=== PATIENT | male | born 1970 | race Caucasian/White ===

== ENCOUNTER → 2025-08-29 | Outpatient (CLI) | payer MEDICAID, SELFPAY ==
--- NOTE | 2025-08-29 15:46 | MRI_ITS ---
PROCEDURE: SPINE CERVICAL (ROUTINE) 08/29/2025 REASON FOR EXAM: PAIN, RIGHT SHOULDER RADICULOPATHY X10 YEARS TECHNIQUE: Procedure Code: MRISPC Modality: MR Procedure: SPINE CERVICAL (ROUTINE) Multiplanar and multisequence images were obtained without IV contrast administration. FINDINGS: Normal cervical alignment. Normal vertebral body height. No Chiari deformity. No subluxation or marrow infiltration. Cervical spinal cord normal in both caliber and signal. C2-3 is unremarkable. Minor annular bulging at C3-4. C4-5 and C5-6 are unremarkable. Minor annular bulging at C6-7 without spinal stenosis. C7-T1 is within normal limits. No soft tissue masses are identified MRI/Spine Cervical (Routine) IMPRESSION: Mild degenerative changes. Normal spinal cord. No nerve impingement noted Reading [facility]
== END | disposition home or self-care (01) ==
PROVIDERS: PCP Nurse Practitioner Family; Referring Provider Student in an Organized Health Care Education/Training Program; Visit Provider Student in an Organized Health Care Education/Training Program
DX: G95.9 Disease of spinal cord, unspecified (principal); M54.12 Radiculopathy, cervical region
CPT/HCPCS: 72141